=== PATIENT | female | born 1975 | race Caucasian/White ===

== ENCOUNTER 2022-02-03 11:57 | Emergency (ER) | payer BC ==
[2022-02-03] MEDS ORDERED: LORazepam 2 MG/ML SDV IVPUSH ONE (12:04)
[2022-02-03 13:11] LABS: ESTIMATED GFR > 60 (>60); TROPONIN I HIGH SENSITIVITY 4.1 pg/mL (<=60.3)
[2022-02-03] MEDS ORDERED: fentaNYL 50 MCG/ML SDV IVPUSH ONE (13:30)
[2022-02-03] MEDS ORDERED: Ketorolac 30 MG/ML SDV IVPUSH ONE (13:30)
== END 2022-02-03 17:17 | disposition home or self-care (01) ==
LOC: JP.ED 11:57
DX: R06.4 Hyperventilation (principal); J45.909 Unspecified asthma, uncomplicated; Z79.899 Other long term (current) drug therapy
CPT/HCPCS: 36415; 36600; 80053; 82803; 84484; 85025; 96374; 96375; 99282; 99284; J1885; J2060; J3010